=== PATIENT | male | born 1960 | race Caucasian/White ===

== ENCOUNTER → 2016-04-11 | Outpatient (CLI) | payer OTHER ==
[~2016-04-11] MED LIST: ADULT LOW DOSE81 MG PO; CENTRUM SILVER1 EACH PO; GEMFIBROZIL600 MG PO; LISINOPRIL 20MG20 MG PO; NITROGLYCERIN0.4 M1 SL
== END ==
LOC: SL 19:50
DX: R06.81 Apnea, not elsewhere classified (principal)